=== PATIENT | male | born 1970 | race American Indian/Alaskan Native ===

== ENCOUNTER 2020-05-21 07:58 | Emergency (ER) | payer OTHER ==
[2020-05-21] MEDS ORDERED: ONDANSETRON 4 MG/2 ML INJ IV ONE (11:53)
[2020-05-21] MEDS ORDERED: diphenhydrAMINE 50 MG/ML VIAL IV ONE (11:53)
[2020-05-21] MEDS ORDERED: FAMOTIDINE 20 MG/2 ML INJ IV ONE (11:53)
[2020-05-21] MEDS ORDERED: DICYCLOMINE 20 MG TAB PO ONE (11:53)
[2020-05-21] MEDS ORDERED: SODIUM CHLORIDE 0.9% 1000 ML 1,000 ML IV ONE (11:53)
[2020-05-21 12:18] LABS: Bilirubin,Urine NEG (Negative); Blood,Urine NEG (Negative); Color,Urine Yellow (Yellow); Hyaline Casts,Urine 1 /LPF; Mucus,Urine 1+ /HPF; Protein,Urine <15 mg/dL mg/dL (Negative); RBC,Urine < 1.0 /HPF (0.0-6.0); Urobilinogen,Urine < 2.0 mg/dL (<2.0); WBC,Urine < 1.0 /HPF (0.0-6.0)
[2020-05-21 12:50] LABS: Basophils # (Auto) 0.1 K/mm3 (0.0-0.1); Basophils % (Auto) 0.9 % (0.0-1.8); Eosinophils # (Auto) 0.1 K/mm3 (0.0-0.4); Lymphocytes # (Auto) 1.7 K/mm3 (1.2-5.4); Lymphocytes % (Auto) 15.6 % (13.4-35.0); Mean Corpuscular HGB Conc 33 % (32-34); Mean Corpuscular Volume 88 fl (84-94); Monocytes # (Auto) 0.8 K/mm3 (0.0-0.8); Platelet Count 270 K/mm3 (140-440); Red Blood Count 6.25 M/mm3 (3.65-5.03); Red Cell Distribution Width 14.6 % (13.2-15.2)
--- NOTE | 2020-05-21 12:52 | Emergency Department Report ---
ED Abdominal Pain HPI - General Chief Complaint: Abdominal Pain Stated Complaint: LFT SIDE ABD PAIN Time Seen by Provider: 05/21/20 11:23 Source: patient Mode of arrival: Ambulatory Limitations: No Limitations - History of Present Illness Initial Comments: This is a 49-year-old male nontoxic, well nourished in appearance, no acute signs of distress presents to the ED with c/o of nausea and abdominal pain 2 days. Patient denies any vomiting. Patient describes abdominal pain as cramping and aching with level of 8/10 to the left upper and lower abdominal area. Patient also stated has left flank pain. Patient denies chest pain, short of breath, fever, hemoptysis, blood in stool, chills, headache, stiff neck, numbness or tingling. Patient denies any diarrhea or constipation. Denies any urinary symptoms. Denies any blood in stool. Patient denies any recent travels. Patient stated allergies to steroid. MD Complaint: abdominal pain -: days(s) Location: LUQ, RUQ Radiation: L flank Migration to: no migration Severity: mild Severity scale (0 -10): 8 Quality: aching Consistency: constant Improves With: nothing Worsens With: nothing Associated Symptoms: nausea. denies: vomiting, diarrhea, fever, chills, constipation, dysuria, hematemesis, hematochezia, melena, hematuria, anorexia, syncope - Related Data Previous Rx's Medication Instructions Recorded Last Taken Type Naproxen 500 mg PO Q12H PRN #12 tablet 05/21/20 Unknown Rx Ondansetron [Zofran Odt] 4 mg PO Q8HR PRN #12 tab.rapdis 05/21/20 Unknown Rx Allergies Allergy/AdvReac Type Severity Reaction Status Date / Time steroid Allergy Unknown Uncoded 05/21/20 08:07 ED Review of Systems ROS: Stated complaint: LFT SIDE ABD PAIN Other details as noted in HPI Constitutional: denies: chills, fever Eyes: denies: eye pain, eye discharge, vision change ENT: denies: ear pain, throat pain Respiratory: denies: cough, shortness of breath, wheezing Cardiovascular: denies: chest pain, palpitations Endocrine: no symptoms reported Gastrointestinal: abdominal pain, nausea. denies: vomiting, diarrhea, constipation, hematemesis, melena, hematochezia Genitourinary: denies: urgency, dysuria Musculoskeletal: denies: back pain, joint swelling, arthralgia Skin: denies: rash, lesions Neurological: denies: headache, weakness, paresthesias Psychiatric: denies: anxiety, depression Hematological/Lymphatic: denies: easy bleeding, easy bruising ED Past Medical Hx - Past Medical History Previous Medical History?: No - Surgical History Past Surgical History?: No - Social History Smoking Status: Never Smoker - Medications Home Medications: Home Medications Medication Instructions Recorded Confirmed Last Taken Type Naproxen 500 mg PO Q12H PRN #12 tablet 05/21/20 Unknown Rx Ondansetron [Zofran Odt] 4 mg PO Q8HR PRN #12 tab.rapdis 05/21/20 Unknown Rx ED Physical Exam - General Limitations: No Limitations General appearance: alert, in no apparent distress - Head Head exam: Present: atraumatic, normocephalic - Eye Eye exam: Present: normal appearance - Neck Neck exam: Present: normal inspection, full ROM. Absent: tenderness, meningismus, lymphadenopathy - Respiratory Respiratory exam: Present: normal lung sounds bilaterally. Absent: respiratory distress, wheezes, rales, rhonchi, stridor, chest wall tenderness, accessory muscle use, decreased breath sounds, prolonged expiratory - Cardiovascular Cardiovascular Exam: Present: regular rate, normal rhythm, normal heart sounds. Absent: bradycardia, tachycardia, irregular rhythm, systolic murmur, diastolic murmur, rubs, gallop - GI/Abdominal GI/Abdominal exam: Present: soft, tenderness (RU and RL ), normal bowel sounds. Absent: distended, guarding, rebound, rigid, diminished bowel sounds - Extremities Exam Extremities exam: Present: normal inspection, full ROM - Back Exam Back exam: Present: normal inspection, full ROM. Absent: tenderness, CVA tenderness (R), CVA tenderness (L), muscle spasm, paraspinal tenderness, vertebral tenderness, rash noted - Neurological Exam Neurological exam: Present: alert, oriented X3, normal gait - Psychiatric Psychiatric exam: Present: normal affect, normal mood - Skin Skin exam: Present: warm, dry, intact, normal color. Absent: rash ED Course Vital Signs 05/21/20 08:05 Temperature 97.8 F Pulse Rate 77 Respiratory 15 Rate Blood Pressure 123/79 O2 Sat by Pulse 97 Oximetry - Reevaluation(s) Reevaluation #1: 05/21/20 12:52 Patient is speaking in full sentences with no signs of distress noted. ED Medical Decision Making - Lab Data Result diagrams: 05/21/20 12:17 05/21/20 12:12 Lab Results 05/21/20 05/21/20 05/21/20 Range/Units 12:05 12:12 12:17 WBC 10.8 (4.5-11.0) K/mm3 RBC 6.25 H (3.65-5.03) M/mm3 Hgb 18.0 H (11.8-15.2) gm/dl Hct 55.0 H (35.5-45.6) % MCV 88 (84-94) fl MCH 29 (28-32) pg MCHC 33 (32-34) % RDW 14.6 (13.2-15.2) % Plt Count 270 (140-440) K/mm3 Lymph % (Auto) 15.6 (13.4-35.0) % [place] % (Auto) 7.0 (0.0-7.3) % Eos % (Auto) 1.0 (0.0-4.3) % Baso % (Auto) 0.9 (0.0-1.8) % Lymph # 1.7 (1.2-5.4) K/mm3 [place] # 0.8 (0.0-0.8) K/mm3 Eos # 0.1 (0.0-0.4) K/mm3 Baso # 0.1 (0.0-0.1) K/mm3 Seg Neutrophils % 75.5 H (40.0-70.0) % Seg Neutrophils # 8.2 H (1.8-7.7) K/mm3 Sodium 140 (137-145) mmol/L Potassium 4.5 (3.6-5.0) mmol/L Chloride 101.2 (98-107) mmol/L Carbon Dioxide 26 (22-30) mmol/L Anion Gap 17 mmol/L BUN 15 (9-20) mg/dL Creatinine 1.0 (0.8-1.3) mg/dL Estimated GFR > 60 ml/min BUN/Creatinine Ratio 15 % Glucose 99 (75-100) mg/dL Calcium 9.9 (8.4-10.2) mg/dL Total Bilirubin 0.90 (0.1-1.2) mg/dL AST 27 (5-40) units/L ALT 23 (7-56) units/L Alkaline Phosphatase 58 (35-129) units/L Total Protein 7.0 (6.3-8.2) g/dL Albumin 4.4 (3.9-5) g/dL Albumin/Globulin Ratio 1.7 % Lipase 29 (13-60) units/L Urine Color Yellow (Yellow) Urine Turbidity Clear (Clear) Urine pH 6.0 (5.0-7.0) Ur Specific [place] 1.021 (1.003-1.030) Urine Protein <15 mg/dl (Negative) mg/dL Urine Glucose (UA) Neg (Negative) mg/dL Urine Ketones Neg (Negative) mg/dL Urine Blood Neg (Negative) Urine Nitrite Neg (Negative) Urine Bilirubin Neg (Negative) Urine Urobilinogen < 2.0 (<2.0) mg/dL Ur Leukocyte Esterase Neg (Negative) Urine WBC (Auto) < 1.0 (0.0-6.0) /HPF Urine RBC (Auto) < 1.0 (0.0-6.0) /HPF Hyaline Casts 1 /LPF Urine Mucus 1+ /HPF - Radiology Data Referring Physician: ROMERO PEDROZA Patient Name: KARISSA BRANDT Date of : 1970 Sex: Male Report Date: 2020-05-21 Report Status: [place] [address] Cat Scan Report Signed Patient: KARISSA BRANDT MR#: [id number] : 1970 Acct:[id number] Age/Sex: 49 / M ADM Date: 05/21/20 Loc: ED Attending Dr: Ordering Physician: ROMERO PEDROZA NP Date of Service: 05/21/20 Procedure(s): CT abdomen pelvis w con Accession Number(s): [id number] cc: ROMERO PEDROZA NP CT ABDOMEN AND PELVIS WITH CONTRAST HISTORY: abd pain w nausea. COMPARISON: None. TECHNIQUE: CT images of the abdomen and pelvis were obtained following administration of intravenous contrast. All CT scans at this location are performed using CT dose reduction for ALARA by means of automated exposure control. CONTRAST: 100 ml of intravenous contrast administered. FINDINGS: Lungs/bones: Lung bases are clear. No acute osseous abnormality identified. Abdomen/pelvis: A vague hypodensity is seen near the gallbladder fossa which could represent focal fatty infiltration. The liver otherwise appears unremarkable. The gallbladder, spleen, pancreas, adrenals, kidneys, and proximal GI tract appear unremarkable. There is a small fat-containing umbilical hernia. Prostate is enlarged and abuts the bladder base. Bladder itself is normal. No pelvic free fluid. There is colonic diverticulosis with inflammatory change involving a fatty appendage in the mid descending colon. The appendix is normal. IMPRESSION: 1. Mild epiploic appendagitis involving the descending colon. Signer Name: Lester Velarde MD Signed: 05/21/2020 2:34 PM Workstation Name: [id number] Transcribed By: MICHELLE Dictated By: Lester Velarde MD Electronically Authenticated By: Lester Velarde MD Signed Date/Time: 05/21/20 143 DD/ 143 TD/TT: - Medical Decision Making This is a 49-year-old male that presents with abdominal pain. Patient is stable and was examined by me. There is no abdominal tenderness. Negative signs of symptoms of appendicitis. Labs obtained. UA obtained. CT of abdomen obtained and dictated by the radiologist. Patient is notified of the report with no questions noted by the patient. Vital signs are stable prior to discharge. Patient received medical treatment in the ED which patient stated symptoms has resovled and subsided. Was instructed note to operate any machinery due to possible drowsiness and stated someone will drive the patient home. A by mouth challenge has been obtained and patient tolerated well with no nausea vomiting. Patient was also instructed to Follow-up with a primary care doctor in 3-5 days or if symptoms worsen and continue return to emergency room as soon as possible. At time of discharge, the patient does not seem toxic or ill in appearance. No acute signs of distress noted. Patient agrees to discharge treatment plan of care. No further questions noted by the patient. - Differential Diagnosis Kidney stone, hydronephrosis, SBO, gastritis Critical care attestation.: If time is entered above; I have spent that time in minutes in the direct care of this critically ill patient, excluding procedure time. ED Disposition Clinical Impression: Epiploic appendagitis Disposition: DC- TO HOME OR SELFCARE Is pt being admited?: No Does the pt Need Aspirin: No Condition: Stable Instructions: Acute Abdominal Pain (ED) Additional Instructions: Follow-up with a primary care and second facing baster doctor in 3-5 days or if symptoms worsen and continue return to emergency room as soon as possible. Prescriptions: Naproxen 500 mg PO Q12H PRN #12 tablet PRN Reason: Pain , Severe (7-10) Ondansetron [Zofran Odt] 4 mg PO Q8HR PRN #12 tab.rapdis PRN Reason: Nausea Referrals: MARCY JOSEPH MD [Primary Care Provider] - 3-5 Days PRIMARY CAREMD [Referring] - 3-5 Days CLAUDIA LARSEN MD [Staff Physician] - 3-5 Days [facility] [Provider Group] - 3-5 Days Forms: Work/School Release Form(ED) Time of Disposition: 14:53
[2020-05-21 13:11] LABS: Alanine Aminotransferase 23 units/L (7-56); Albumin 4.4 g/dL (3.9-5); BUN/Creatinine Ratio 15; Blood Urea Nitrogen 15 mg/dL (9-20); Calcium 9.9 mg/dL (8.4-10.2); Hemolysis Index 27
[2020-05-21] MEDS ORDERED: MORPHINE 4 MG/1 ML INJ IV ONE (13:41)
--- NOTE | 2020-05-21 14:39 | Cat Scan Report ---
CT ABDOMEN AND PELVIS WITH CONTRAST HISTORY: abd pain w nausea. COMPARISON: None. TECHNIQUE: CT images of the abdomen and pelvis were obtained following administration of intravenous contrast. All CT scans at this location are performed using CT dose reduction for ALARA by means of automated exposure control. CONTRAST: 100 ml of intravenous contrast administered. FINDINGS: Lungs/bones: Lung bases are clear. No acute osseous abnormality identified. Abdomen/pelvis: A vague hypodensity is seen near the gallbladder fossa which could represent focal f atty infiltration. The liver otherwise appears unremarkable. The gallbladder, spleen, pancreas, adren als, kidneys, and proximal GI tract appear unremarkable. There is a small fat-containing umbilical hernia. Prostate is enlarged and abuts the bladder base. Bladder itself is normal. No pelvic free fluid. Ther e is colonic diverticulosis with inflammatory change involving a fatty appendage in the mid descendin g colon. The appendix is normal. IMPRESSION: 1. Mild epiploic appendagitis involving the descending colon. Signer Name: Lester Velarde MD Signed: 05/21/2020 2:34 PM Workstation Name: [id number]
[2020-05-21 17:03] VITALS: BP 128/81
== END 2020-05-21 14:58 | disposition home or self-care (01) ==
LOC: ED 07:58
DX: K63.89 Other specified diseases of intestine (principal); Z79.899 Other long term (current) drug therapy; Z88.8 Allergy status to other drugs, medicaments and biological substances
CPT/HCPCS: 36415; 74177; 80053; 81001; 83690; 85025; 96361; 96374; 96375; 99284; J1200; J2270; J2405; J7030; Q9967